=== PATIENT | female | born 1945 | race Two or more races ===

== ENCOUNTER 2023-05-29 14:42 | Inpatient (IN) | payer OTHER ==
[~2023-05-29] VITALS: Ht 160 cm; Wt 68.0 kg
[~2023-05-29 14:42] MED LIST: AMLODIPINE BESY10 MG; AVANDIA4 MG; CELEBREX100 MG PO; COZAAR25 MG; DOXAZOSIN MESYLA2 MG; FENOFIBRATE160 MG; FOSAMAX70 MG; GLIPIZIDE5 MG; GLUCOPHAGE XR500 MG
[2023-06-01] MEDS ORDERED: GEMFIBROZIL600 MG PO (12:02)
[2023-06-01] MEDS ORDERED: HYDROCHLOROTHIA25 MG PO (12:03)
[2023-06-01] MEDS ORDERED: AVAPRO300 MG PO (12:03)
[2023-06-01] MEDS ORDERED: PEPCID AC20 MG PO (12:03)
[2023-06-01] MEDS ORDERED: PROTONIX40 MG PO (12:03)
[2023-06-01] MEDS ORDERED: DICLOFENAC-MIS1 EAC3 PO (12:04)
[2023-06-01] MEDS ORDERED: LEVO-T50 MCG PO (12:04)
[2023-06-01] MEDS ORDERED: ZOCOR20 MG PO (12:04)
[2023-06-05] MEDS ORDERED: DOXAZOSIN MESYLA4 MG (15:01)
[2023-06-05] MEDS ORDERED: METOPROLOL SUCC50 MG (15:01)
[2023-06-07] MEDS ORDERED: TRAM1TAB98 PO (11:42)
[2023-06-07] MEDS ORDERED: PEPCID AC20 MG PO (11:43)
== END 2023-06-07 13:42 | disposition home or self-care (01) | DRG 330 ==
LOC: O/R 06-04 05:10 → SURG 06-04 07:00 → SURH 06-04 10:12
PROVIDERS: ADMIT Surgery; ATTEND Surgery
PROC: 07BC4ZX Excision of Pelvis Lymphatic, Percutaneous Endoscopic Approach, Diagnostic (ICD-10-PCS; 2023-06-04)
PROC: 0DTF4ZZ Resection of Right Large Intestine, Percutaneous Endoscopic Approach (ICD-10-PCS; principal; 2023-06-04 07:00)
DX: C18.2 Malignant neoplasm of ascending colon (principal); N39.0 Urinary tract infection, site not specified; I11.9 Hypertensive heart disease without heart failure; E11.9 Type 2 diabetes mellitus without complications; Z79.4 Long term (current) use of insulin; E66.9 Obesity, unspecified